=== PATIENT | male | born 1960 | race Caucasian/White ===

== ENCOUNTER 2016-12-27 06:01 | Day surgery (SDC) | payer OTHER ==
[2016-12-27] VITALS (16 sets, daily range): BP systolic 119–141; BP diastolic 71–93; PULSE 78–94; RESP 14–20; TEMP 97.4–97.5; O2SAT 94–98; Ht 172.7 cm; Wt 86.6 kg
[~2016-12-27] VITALS: Ht 172.7 cm; Wt 86.6 kg
[~2016-12-27 06:01] MED LIST: NORT25CA3 PO; TAMS0.4C47 PO
--- OUTSIDE RECORDS SUMMARY | 2016-12-27 06:05 | XMS REPORT | Continuity of Care Document ---
Author Author Jan FUNG, Jaja Jain VC Ambulatory Address Unknown Phone Unavailable Care Team Providers Care Semaphore Operator Name Role Phone LesLaura ward AMINA Unavailable Payers Payer name Insurance type Covered libertarian ID Authorization(s) Unknown Problems Condition Effective Dates (start - stop) Clinical Status Radiculitis, Thoracic or Lumbar - *Symptomatic 311 - DEPRESSIVE DISORDER NEC - BENIGN HYPERTENSION - Sinusitis, Acute - *Chronic Unspecified sinusitis (chronic) - *Chronic Deviated nasal septum - *Chronic Hypertrophy of nasal turbinates - *Chronic Unspecified sinusitis (chronic) - *Chronic Unspecified sinusitis (chronic) - *Chronic Deviated nasal septum - *Chronic Hypertrophy of nasal turbinates - *Chronic Insomnia with sleep apnea, unspecified - *Chronic Degeneration of lumbar or lumbosacral intervertebral disc - * Chronic Lumbosacral spondylosis without myelopathy - *Chronic Degeneration of lumbar or lumbosacral intervertebral disc - * Symptomatic Lumbosacral spondylosis without myelopathy - *Symptomatic Lumbago - *Symptomatic Degeneration of lumbar or lumbosacral intervertebral disc - * Symptomatic Lumbosacral spondylosis without myelopathy - *Symptomatic Pain in joint involving shoulder region - *Symptomatic Cervicalgia - *Chronic Spinal stenosis in cervical region - *Chronic Displacement of 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 - *Chronic Headache - *Chronic Lumbago - *Chronic Degeneration of lumbar or lumbosacral intervertebral disc - * Chronic Lumbago - Chronic Degeneration of lumbar or lumbosacral intervertebral disc - Chronic Follow-up examination, following other surgery - Improved Chronic maxillary sinusitis - *Chronic Other specified dentofacial anomalies - *Chronic Sinusitis, acute other - Recurrent Benign skin lesion - Uncertain Lumbosacral spondylosis without myelopathy - *Chronic Lumbosacral spondylosis without myelopathy - *Symptomatic Bronchitis, Acute - Acute Lumbago - *Chronic Lumbosacral spondylosis without myelopathy - *Chronic Degeneration of lumbar or lumbosacral intervertebral disc - * Chronic Cervicalgia - *Chronic Cervical spondylosis without myelopathy - *Chronic Family History Family Member Diagnosis Age At Onset Status Unknown Social History Social History Element Description Quantity Unknown Allergies, Adverse Reactions, Alerts Substance Reaction Severity Status PENICILLINS Unknown Medications Medication Instructions Dosage Effective Dates (start - stop) Status lisinopril 5 mg tablet Take one tablet by mouth daily. - Active ANDROGEL (unknown strength) apply by topical route every day to clean dry skin of shoulder and upper arm and/or abdomen - Active Fish Oil Concentrate 1,000 mg capsule Take 1 capsule po qday - Active Percocet 7.5 mg-325 mg tablet take 1 - 2 Tablet by oral route every 4 - 6 hours as needed 0 - Active Pristiq 100 mg tablet,extended release Take 1 tablet by mouth every day. - Active Immunizations Vaccine Date Status Comments Unknown Results Test Name Date and Time Measure Units Reference Range Abnormal Flag Comments Unknown Vital Signs Date / Time: Height Weight Pulse Rate Blood Pressure Temperature /07:48:00 69.00 in 202.00 lbs 90 /min 126/84 mm[Hg] 99.7 F Procedures Procedure Date Unknown Encounters Encounter Location Date Patient Visit [facility] FC Pain Patient Visit Conversion Patient Visit [facility] Patient Visit [facility] Patient Visit [facility] Patient Visit [facility] FM Patient Visit [facility] [facility] Patient [place] [id number] [facility] Patient Visit [facility] Patient Visit [facility] Patient Visit [facility] Patient Visit [facility] [address] [facility] Patient [place] [id number] [facility] Patient Visit [facility] Patient Visit [facility] Pain Patient Visit [facility] FM Patient Visit [facility] Pain Advance Directives Directive Effective Date Unknown
--- OUTSIDE RECORDS SUMMARY | 2016-12-27 06:05 | XMS REPORT ---
Author Author Dre Stanley Organization [employer] Address Unknown Phone Unavailable Care Team Providers Care School Attendance Secretary Name Role Phone Dre Stanley CP Unavailable Allergies No Known Allergies Problems Problem Type Condition Code Onset Dates Condition Status Assessment Encounter for dental examination and cleaning without abnormal findings Z01.20 Active Medications No Known Medications Procedures Procedure Coding System Code Date OV OBS - NO OTH SRVC PRFRM SEE CPT CPT-4 D9430 Jul 03, 2016 Results No Known Results Summary Purpose [employer] Submission
--- OUTSIDE RECORDS SUMMARY | 2016-12-27 06:05 | XMS REPORT | Continuity of Care Document ---
Author Author [facility] Organization [facility] Address Unknown Phone Unavailable Allergies Medications Problems Procedures Results Encounters ACCT No. Visit Date/Time Discharge Status Pt. Type Provider Facility Loc./Unit Complaint [id number] 08/11/2013 07:47:00 08/11/2013 23 :59:59 C[facility] Outpatient
--- OUTSIDE RECORDS SUMMARY | 2016-12-27 06:05 | XMS REPORT ---
Author Author Dre Stanley Organization [employer] Address Unknown Phone Unavailable Care Team Providers Care Laborer Wharf Name Role Phone Dre Stanley CP Unavailable Allergies, Adverse Reactions, Alerts Substance Reaction Event Type N.K.D.A. Info Not Available Non Drug Allergy Problems Problem Type Condition Code Onset Dates Condition Status Assessment Encounter for dental examination and cleaning without abnormal findings Z01.20 Active Medications Medication Code System Code Instructions Start Date End Date Status Dosage Flomax [facility] [id number] not defined Nortriptyline HCl [facility] [id number] not defined Procedures Procedure Coding System Code Date INTRAORL - CMPL SERIES CODE 82320 CPT-4 D0210 Aug 08, 2016 COMP ORAL EVALUATION - NEW/EST PT CPT-4 D0150 Aug 08, 2016 Results No Known Results Summary Purpose [employer] Submission
--- OUTSIDE RECORDS SUMMARY | 2016-12-27 06:05 | XMS REPORT ---
Author Author Dre Stanley Organization [employer] Address Unknown Phone Unavailable Care Team Providers Care Electronic Die Maker Name Role Phone Dre Stanley CP Unavailable Allergies No Known Allergies Problems Problem Type Condition Code Onset Dates Condition Status Assessment Dental caries, unspecified K02.9 Active Medications No Known Medications Procedures Procedure Coding System Code Date CROWN-PORCELN [facility] PREDOM BASE METL CPT-4 D2751 Jun 13, 2016 CROWN-PORCELN [facility] PREDOM BASE METL CPT-4 D2751 Jun 13, 2016 Results No Known Results Summary Purpose [employer] Submission
--- OUTSIDE RECORDS SUMMARY | 2016-12-27 06:05 | XMS REPORT ---
Author Author Dre Stanley Organization [employer] Address Unknown Phone Unavailable Care Team Providers Care Income Tax Adjuster Name Role Phone Dre Stanley CP Unavailable Allergies No Known Allergies Problems Problem Type Condition Code Onset Dates Condition Status Assessment Encounter for dental examination and cleaning without abnormal findings Z01.20 Active Medications Medication Code System Code Instructions Start Date End Date Status Dosage Flomax [facility] [id number] not defined Nortriptyline HCl [facility] [id number] not defined Procedures Procedure Coding System Code Date OV OBS - NO OTH SRVC PRFRM SEE CPT CPT-4 D9430 Aug 08, 2016 Results No Known Results Summary Purpose [employer] Submission
--- OUTSIDE RECORDS SUMMARY | 2016-12-27 06:05 | XMS REPORT ---
Author Author Dre Stanley Organization [employer] Address Unknown Phone Unavailable Care Team Providers Care Preparation Supervisor [place] Name Role Phone Dre Stanley CP Unavailable Allergies No Known Allergies Problems Problem Type Condition Code Onset Dates Condition Status Assessment Encounter for dental examination and cleaning without abnormal findings Z01.20 Active Medications No Known Medications Procedures Procedure Coding System Code Date PALLIATVE TX DENTAL PAIN-MINOR PROC CPT-4 D9110 Aug 01, 2016 LTD ORAL EVALUATION - PROBLEM FOCUS CPT-4 D0140 Aug 01, 2016 INTRAORL-PERIAPICAL 1 FILM 99451 CPT-4 D0220 Aug 01, 2016 Results No Known Results Summary Purpose [employer] Submission
--- OUTSIDE RECORDS SUMMARY | 2016-12-27 06:05 | XMS REPORT ---
Author Author Dre Stanley Organization [employer] Address Unknown Phone Unavailable Care Team Providers Care Drafter Detail Name Role Phone Dre Stanley CP Unavailable Allergies No Known Allergies Problems Problem Type Condition Code Onset Dates Condition Status Assessment Dental caries, unspecified K02.9 Active Medications No Known Medications Results No Known Results Summary Purpose [employer] Submission
[2016-12-27] MEDS ORDERED: LR 1,000 ML IV SCH (07:00)
[2016-12-27] MEDS ORDERED: LIDOCAINE 1% (10mg/ml) 2ml SDV INJ ONE (07:00)
[2016-12-27] MEDS ORDERED: SALINE FLUSH 10ml SYRINGE IVF ONE (07:08)
[2016-12-27] MEDS ORDERED: FENTANYL 100mcg/2ml INJECTION IV ONE (07:08)
[2016-12-27] MEDS ORDERED: GLUCAGON 1 MG INJECTION IV ONE (07:08)
[2016-12-27] MEDS ORDERED: MIDAZOLAM 5mg/5ml INJECTION IV ONE (07:08)
[2016-12-27] MEDS ORDERED: MIDAZOLAM 2mg/2ml INJECTION IV ONE ×2 (07:09)
[2016-12-27] MEDS ORDERED: FENTANYL 100mcg/2ml INJECTION IV PRN (07:20)
[2016-12-27] MEDS ORDERED: MIDAZOLAM 5mg/5ml INJECTION IV PRN (07:20)
[2016-12-27] MEDS ORDERED: CLINDAMYCIN 600mg IVPB 50 ML IV ONE (07:30)
[2016-12-27] MEDS ORDERED: GLUCAGON 1 MG INJECTION IV PRN (07:35)
--- NOTE | 2016-12-27 15:55 | OPNOTEF ---
DATE OF OPERATION 12/27/2016 INDICATION History of colon polyps. OPERATION Colonoscopy SURGEON Cassius Carreon D.O. ASA CLASSIFICATION II Consent signed and on the chart. Routine monitoring with ECG, continuous oximetry and noninvasive blood pressure was performed throughout the procedure and found to be within normal limits. IV sedation was performed with 9 mg of Versed and 80 mcg of Fentanyl. He was also given one amp of glucagon. Prior to the procedure, the patient was brought to the endoscopy lab where a brief review of his medical history and physical exam was performed. The procedure was described to him and he was agreeable to continue. All questions were answered. DESCRIPTION OF OPERATION He was given IV sedation and placed in the left lateral decubitus position. A digital rectal exam revealed a moderately enlarged prostate, no nodules, no rectal masses. The colonoscope was introduced through the anal verge and advanced to the cecum. Upon reaching the cecum, careful inspection of mucosa was performed. From the cecum through the ascending and transverse colon there were no polyps, masses, lesions or diverticula. He did have diverticulosis of the descending and sigmoid colon and polyps removed at 35 cm, 25 cm and also in the rectum. In particular, a polyp in the rectum looked most consistent with adenoma. He tolerated the procedure well. There were no complications. IMPRESSION 1. Polyps removed at the rectum, 25 cm and 35 cm. 2. Diverticulosis of the descending and sigmoid colon. RECOMMENDATIONS 1. Review the path report when available. 2. Repeat as indicated. MTDD
== END 2016-12-27 08:56 | disposition home or self-care (01) ==
LOC: NSC 06:01
PROVIDERS: ATTEND Internal Medicine
DX: Z12.11 Encounter for screening for malignant neoplasm of colon (principal); K63.5 Polyp of colon; D12.7 Benign neoplasm of rectosigmoid junction; D12.8 Benign neoplasm of rectum; K57.30 Diverticulosis of large intestine without perforation or abscess without bleeding; Z86.010 Personal history of colon polyps; N40.0 Benign prostatic hyperplasia without lower urinary tract symptoms; I10 Essential (primary) hypertension; G47.33 Obstructive sleep apnea (adult) (pediatric); E78.2 Mixed hyperlipidemia; Z79.899 Other long term (current) drug therapy; Z87.891 Personal history of nicotine dependence; Z85.118 Personal history of other malignant neoplasm of bronchus and lung
CPT/HCPCS: 45380; J1610; J2250; J3010; J7120